=== PATIENT | female | born 1995 | race Two or more races ===

== ENCOUNTER → 2019-03-12 | Outpatient (CLI) | payer BC, OTHER ==
[2019-03-12 11:50] VITALS: BP 112/59
[2019-03-12 12:29] VITALS: BP 112/59
--- NOTE | 2019-03-12 12:29 | NUR ---
IN TO CLINIC FOR NOTED BRADYCARDIA AFTER TAKING FIRST DOSE OF MIDIDRINE 25 PO THIS AM. PT REPORTS GOOSEBUMPS AND KNOT IN THROAT "LIKE SOMETHING IS STUCK". PT IS ALERT AND ORIENTED AND WITHOUT DISTRESS. PT HAS HER OWN PULSE OXIMETER WHICH TAKES A HEART RATE READING. EKG DONE AND VERIFIED SINUS BRADYCARDIA. CLINIC PROVIDER DR BEYER NOTIFIED AND PT IS TO CONTINUE MIDIDRINE 10 MG PO DAILY. ORTHOSTATIC BP SUPINE 113/62 HR 46 SITTING 112/59 HR 51 STANDING 100/67 HR 55 DISCHARGED TO SELF CARE IN NO DISTRESS OR DISCOMFORT.
== END | disposition home or self-care (01) ==
LOC: CHF HDHVI 11:56
PROVIDERS: ATTEND Internal Medicine Cardiovascular Disease
DX: R00.1 Bradycardia, unspecified (principal)
CPT/HCPCS: 93005; G0463

== ENCOUNTER → 2019-03-18 | Outpatient (CLI) | payer BC, OTHER | END | disposition home or self-care (01) | LOC: Rad HDHVI 14:59 | PROVIDERS: ATTEND Internal Medicine Cardiovascular Disease | DX: R00.2 Palpitations (principal); R42 Dizziness and giddiness; R55 Syncope and collapse; E03.9 Hypothyroidism, unspecified | CPT/HCPCS: 93306 ==

== ENCOUNTER → 2019-03-19 | Outpatient (CLI) | payer BC, OTHER ==
[2019-03-19 12:34] LABS: Basophils # (auto) 0 uL; Basophils % (auto) 0.3 % (0.0-2.0); Eosinophils # (auto) 0 uL; Eosinophils % (auto) 0.7 % (0.0-7.0); Hematocrit 43.8 % (36.0-46.0); Hemoglobin 14.8 g/dL (12.2-16.2); Lymphocytes % (auto) 28.5 % (10.0-50.0); Mean Corpuscular Hemoglobin 31.6 pg (28.0-32.0); Mean Corpuscular Hgb Conc. 33.8 g/dL (32.0-36.0); Mean Corpuscular Volume 93.5 fL (80.0-100.0); Monocytes # (auto) 0.7 uL; Monocytes % (auto) 10.4 % (0.0-12.0); Neutrophils # (auto) 4.2 uL; Neutrophils % (auto) 60.1 % (37.0-80.0); Platelet Count (auto) 333 10^3/uL (140-450); Red Blood Cells 4.69 10^6/uL (4.0-5.20); Red Cell Distribution Width 13.6 % (11.8-14.3)
[2019-03-19 12:37] LABS: Urine Blood 2+ /uL (Negative)
[2019-03-19 12:48] LABS: Calcium 9.3 mg/dL (8.5-10.1); Potassium 3.8 mmol/L (3.5-5.1)
[2019-03-19 12:54] LABS: BUN/Creatinine Ratio 17.1; Bilirubin, Total 0.6 mg/dL (0.2-1.0); Total Protein 7.6 g/dL (6.4-8.2)
[2019-03-19 12:55] LABS: Free T4 (Free Thyroxine) 0.9 ng/dL (0.89-1.76)
== END | disposition home or self-care (01) ==
LOC: LAB 09:16
PROVIDERS: ATTEND Internal Medicine Cardiovascular Disease
DX: N39.0 Urinary tract infection, site not specified (principal); E03.9 Hypothyroidism, unspecified; K90.9 Intestinal malabsorption, unspecified; D51.9 Vitamin B12 deficiency anemia, unspecified; E06.3 Autoimmune thyroiditis; R76.0 Raised antibody titer; Z79.899 Other long term (current) drug therapy
CPT/HCPCS: 36415; 80053; 80061; 81003; 82306; 82607; 83036; 84439; 84443; 85025; 86376; 86800